=== PATIENT | female | born 1950 | race Caucasian/White ===

== ENCOUNTER 2022-10-14 06:04 | Day surgery (SDC) | payer MEDICARE ==
[~2022-10-14] VITALS: Ht 157.5 cm; Wt 119.1 kg
[~2022-10-14 06:04] MED LIST: ATOR40TA PO; Budeprion Xl300 MG PO; FURO20 PO; LISI20 PO; METF500 PO; Metoprolol Tar100 MG PO
--- NOTE | 2022-10-14 06:24 | NUR ---
10/14/22 0624 Laurence Shaikh AT 0621 PLEDGET AT 0623
[2022-10-14 08:21] VITALS: BP 157/98
--- NOTE | 2022-10-14 08:22 | NUR ---
10/14/22 0822 Faye Doss PT IS TYPICALLY HYPERTENSIVE. CAME IN FOR PROCEDURE THIS MORNING AT 159/77 AND 171/67. VS IN SDU ALIGN WITH PTS BASELINE.
== END 2022-10-14 08:17 | disposition home or self-care (01) ==
LOC: ORSCSDS 06:04
PROVIDERS: Student in an Organized Health Care Education/Training Program
PROC: 08RK3JZ Replacement of Left Lens with Synthetic Substitute, Percutaneous Approach (ICD-10-PCS; principal; 2022-10-14 07:30)
DX: E11.36 Type 2 diabetes mellitus with diabetic cataract (principal); H25.12 Age-related nuclear cataract, left eye; Z96.1 Presence of intraocular lens; E11.319 Type 2 diabetes mellitus with unspecified diabetic retinopathy without macular edema; I10 Essential (primary) hypertension; I48.91 Unspecified atrial fibrillation; J45.909 Unspecified asthma, uncomplicated; E66.9 Obesity, unspecified; Z68.42 Body mass index [BMI] 45.0-49.9, adult; Z79.82 Long term (current) use of aspirin; Z79.84 Long term (current) use of oral hypoglycemic drugs; Z79.899 Other long term (current) drug therapy
CPT/HCPCS: 82947; J2001; J2250; J3010; J7040; V2632

== ENCOUNTER → 2023-03-14 | Outpatient (CLI) | payer MEDICARE ==
[2023-03-14 15:04] LABS: BASOPHILS ABSOLUTE AUTO 0.04 K/mm3 (0.00-0.23); BASOPHILS PERCENT AUTO 1 % (0-2); EOSINOPHILS ABSOLUTE AUTO 0.06 K/mm3 (0.00-0.68); EOSINOPHILS PERCENT AUTO 1 % (0-6); Hematocrit 38.1 % (33.0-51.0); Hemoglobin 11.8 g/dL (11.5-16.0); IMMATURE GRAN ABSOLUTE AUTO 0.01 K/mm3 (0.00-0.10); IMMATURE GRAN PERCENT AUTO 0 % (0-1); LYMPHOCYTES ABSOLUTE AUTO 0.98 K/mm3 (0.84-5.20); LYMPHOCYTES PERCENT AUTO 13 % (21-46); MONOCYTES ABSOLUTE AUTO 0.63 K/mm3 (0.16-1.47); MONOCYTES PERCENT AUTO 8 % (4-13); Mean Corpuscular HGB 29.4 pg (26.0-34.0); Mean Corpuscular Volume 95 fL (80-100); Mean Platelet Volume 10.3 fL (9.1-12.4); NEUTROPHILS ABSOLUTE AUTO 5.98 K/mm3 (1.96-9.15); NEUTROPHILS PERCENT AUTO 78 % (41-73); Platelet Count 266 K/mm3 (150-400); RDW Coefficient Variation 14.2 % (11.7-14.2); RDW Standard Deviation 49.4 fL (35.1-46.3); Red Blood Cell Count 4.02 M/mm3 (3.80-5.20)
[2023-03-14 15:20] LABS: Albumin, Blood 3.1 g/dL (3.4-5.0); Albumin/Globulin Ratio 0.9 (0.8-1.8); Bilirubin, Total 0.4 mg/dL (0.1-1.0); Bun/Creatinine Ratio 15.3 (12.0-20.0); Calcium, Blood 8.8 mg/dL (8.5-10.1); Creatinine, Blood 1.37 mg/dL (0.40-1.00); Globulin, Blood 3.5 g/dL (2.2-4.0); Potassium, Blood 3.3 mmol/L (3.5-5.5); Total Protein, Blood 6.6 g/dL (6.4-8.2)
== END ==
LOC: LAB SHORT 15:00 → LAB 15:00
PROVIDERS: Chiropractor
DX: U07.1 COVID-19 (principal)
CPT/HCPCS: 80053; 83880; 84484; 85025

== ENCOUNTER → 2023-03-30 | Outpatient (CLI) | payer MEDICARE ==
[2023-03-30 14:05] LABS: Microalb/Creat Ratio UR, Rand 4.264 mg/g (0.000-30.000); Microalbumin, Random Urine 14.2 mg/L (0.000-20.000)
== END ==
LOC: LAB SHORT 07:30 → LAB 07:30
PROVIDERS: Family Medicine
DX: E11.9 Type 2 diabetes mellitus without complications (principal)
CPT/HCPCS: 82043; 82570

== ENCOUNTER → 2023-07-02 | Outpatient (CLI) | payer MEDICARE ==
[2023-07-02 14:29] LABS: BASOPHILS ABSOLUTE AUTO 0.07 K/mm3 (0.00-0.23); BASOPHILS PERCENT AUTO 1 % (0-2); EOSINOPHILS ABSOLUTE AUTO 0.31 K/mm3 (0.00-0.68); EOSINOPHILS PERCENT AUTO 3 % (0-6); Hematocrit 41.6 % (33.0-51.0); Hemoglobin 13.2 g/dL (11.5-16.0); IMMATURE GRAN ABSOLUTE AUTO 0.06 K/mm3 (0.00-0.10); IMMATURE GRAN PERCENT AUTO 1 % (0-1); LYMPHOCYTES ABSOLUTE AUTO 2.22 K/mm3 (0.84-5.20); LYMPHOCYTES PERCENT AUTO 20 % (21-46); MONOCYTES ABSOLUTE AUTO 0.85 K/mm3 (0.16-1.47); MONOCYTES PERCENT AUTO 8 % (4-13); Mean Corpuscular HGB 28.3 pg (26.0-34.0); Mean Corpuscular HGB Conc 31.7 g/dL (31.5-36.5); Mean Corpuscular Volume 89 fL (80-100); Mean Platelet Volume 10.3 fL (9.1-12.4); NEUTROPHILS ABSOLUTE AUTO 7.78 K/mm3 (1.96-9.15); NEUTROPHILS PERCENT AUTO 69 % (41-73); Platelet Count 346 K/mm3 (150-400); RDW Coefficient Variation 15.2 % (11.7-14.2); RDW Standard Deviation 49.2 fL (35.1-46.3); Red Blood Cell Count 4.67 M/mm3 (3.80-5.20); White Blood Cell Count 11.29 K/mm3 (4.00-11.30)
[2023-07-02 14:40] LABS: Albumin, Blood 3.3 g/dL (3.4-5.0); Albumin/Globulin Ratio 0.8 (0.8-1.8); Bilirubin, Total 0.4 mg/dL (0.1-1.0); Bun/Creatinine Ratio 25.8 (12.0-20.0); Calcium, Blood 8.7 mg/dL (8.5-10.1); Creatinine, Blood 1.24 mg/dL (0.40-1.00); Globulin, Blood 3.9 g/dL (2.2-4.0); Magnesium, Blood 2.1 mg/dL (1.6-2.4); Potassium, Blood 4.5 mmol/L (3.5-5.5); Total Protein, Blood 7.2 g/dL (6.4-8.2)
== END | disposition home or self-care (01) ==
LOC: LAB 14:15 → LAB SHORT 14:15
PROVIDERS: Chiropractor
DX: R53.1 Weakness (principal); R82.998 Other abnormal findings in urine
CPT/HCPCS: 80053; 83735; 83880; 85025; 87086

== ENCOUNTER 2024-03-16 17:53 | Observation (INO) | payer OTHER, MEDICARE ==
[~2024-03-16] VITALS: Ht 157.5 cm; Wt 120.2 kg
[2024-03-16] MEDS ORDERED: Ondansetron HCl 2 MG / ML 2ML Vial IV ONE (22:45)
[2024-03-16] MEDS ORDERED: FentaNYL Citrate 50 MCG/ML 2 ML Injection IV SCH (22:45)
[2024-03-16 23:45] LABS: BASOPHILS ABSOLUTE AUTO 0.07 K/mm3 (0.00-0.23); BASOPHILS PERCENT AUTO 1 % (0-2); EOSINOPHILS ABSOLUTE AUTO 0.08 K/mm3 (0.00-0.68); EOSINOPHILS PERCENT AUTO 1 % (0-6); Hematocrit 41.5 % (33.0-51.0); Hemoglobin 13.6 g/dL (11.5-16.0); IMMATURE GRAN ABSOLUTE AUTO 0.07 K/mm3 (0.00-0.10); IMMATURE GRAN PERCENT AUTO 1 % (0-1); LYMPHOCYTES ABSOLUTE AUTO 2.24 K/mm3 (0.84-5.20); LYMPHOCYTES PERCENT AUTO 16 % (21-46); MONOCYTES PERCENT AUTO 7 % (4-13); Mean Corpuscular HGB 30.4 pg (26.0-34.0); Mean Corpuscular HGB Conc 32.8 g/dL (31.5-36.5); Mean Corpuscular Volume 93 fL (80-100); Mean Platelet Volume 10.6 fL (9.1-12.4); NEUTROPHILS ABSOLUTE AUTO 10.64 K/mm3 (1.96-9.15); NEUTROPHILS PERCENT AUTO 75 % (41-73); Platelet Count 328 K/mm3 (150-400); RDW Coefficient Variation 13.9 % (11.7-14.2); RDW Standard Deviation 46.9 fL (35.1-46.3); Red Blood Cell Count 4.48 M/mm3 (3.80-5.20)
[2024-03-17] VITALS (14 sets, daily range): BP systolic 103–148; BP diastolic 41–87
[2024-03-17 00:04] LABS: Albumin, Blood 3.5 g/dL (3.4-5.0); Bilirubin, Total 0.4 mg/dL (0.1-1.0); Bun/Creatinine Ratio 29.2 (12.0-20.0); Calcium, Blood 9.4 mg/dL (8.5-10.1); Creatinine, Blood 1.13 mg/dL (0.40-1.00); Globulin, Blood 3.6 g/dL (2.2-4.0); Potassium, Blood 3.4 mmol/L (3.5-5.5); Total Protein, Blood 7.1 g/dL (6.4-8.2)
[2024-03-17] MEDS ORDERED: FentaNYL Citrate 50 MCG/ML 2 ML Injection IV ONE (01:45)
[2024-03-17] MEDS ORDERED: HYDROcodone 5-APAP 325 TAB PO PRN (03:45)
[2024-03-17] MEDS ORDERED: NS 1,000 ML IV SCH (06:00)
[2024-03-17] MEDS ORDERED: FLU VACC TS2024-25(6MOS UP)/PF 45 MCG/0.5 ML SYRINGE IM PRN (06:00)
[2024-03-17] MEDS ORDERED: FentaNYL Citrate 50 MCG/ML 2 ML Injection IV PRN (06:00)
[2024-03-17] MEDS ORDERED: Ondansetron HCl 2 MG / ML 2ML Vial IV PRN (06:00)
[2024-03-17] MEDS ORDERED: Potassium Chloride 40 MEQ in NS 250 ML IV ONE (06:40)
[2024-03-17] MEDS ORDERED: Lactated Ringer's 1,000 ML IV SCH (12:10)
[2024-03-17] MEDS ORDERED: propofoL 20 ML IV ONE (13:17)
[2024-03-17] MEDS ORDERED: FentaNYL Citrate 50 MCG/ML 2 ML Injection ONE ×2 (13:17→14:04)
--- NOTE | 2024-03-17 13:32 | NUR ---
History, Chart, Medications and Allergies reviewed before start of procedure. Lungs clear T/O to Auscultation. Patient confirms NPO status and agrees with scheduled surgery. Pre-Op teaching done. Pt verbalizes understanding.
[2024-03-17] MEDS ORDERED: Ondansetron HCl 2 MG / ML 2ML Vial ONE (14:03)
[2024-03-17] MEDS ORDERED: Ketorolac Tromethamine 30mg Vial ONE (14:03)
[2024-03-17] MEDS ORDERED: Dexamethasone Sod Phos 10 MG/ML 1ML VIAL ONE (14:03)
--- NOTE | 2024-03-17 16:05 | NUR ---
POST OP NOTE PT TO ROOM 219 FROM PACU. ALERT AND RESPONSIVE. VSS. DRESSING/SPLINT TO L LEG C/D/I. PAS IN PLACE. FRIENDS AT BEDSIDE. PT REPORTS NO PAIN OR NAUSEA. TOLERATING PO FLUIDS. L LEG ELEVATED, CAP REFILL >2 SECS IN L TOES. CALL LIGHT IN REACH.
[2024-03-18] MEDS ORDERED: NS 1,000 ML IV SCH (02:05)
--- NOTE | 2024-03-18 02:12 | NUR ---
PROVIDER UPDATE HOSPITALIST NOTIFIED OF PT NOT VOIDING POST PROCEDURE AND OF MOST RECENT BLADDER SCAN BEING UNDER 250ML. ORDER TO START NS AT 75ML/HR WITH 1L TOTAL BEING INFUSED. WILL IMPLEMENT ORDERS PRESCRIBED.
[2024-03-18 04:12] VITALS: BP 123/52
--- NOTE | 2024-03-18 05:03 | NUR ---
SHIFT SUMMARY PT AWAITING POST-OP VOID, BLADDER SCAN LESS THAN 250ML. ENCOURAGED PO INTAKE. IVF INFUSING AT 75/HR PER ORER. IS A/OX4 WITH VSS. SPLINT AND KALEY WRAP TO LEFT LEG CDI. LLE ELEVATED. PAIN MANAGED PER EMAR AND REPOSITIONING. APPEARS TO HAVE SLEPT T/O MOST OF THE NIGHT. PT CURRENTLY RESTING IN BED WITH CALL LIGHT IN REACH AND EYES CLOSED. PT ABLE TO MAKE NEEDS KNOWN. WILL GIVE REPORT TO ONCOMING RN.
[2024-03-18 06:27] LABS: BASOPHILS ABSOLUTE AUTO 0.02 K/mm3 (0.00-0.23); BASOPHILS PERCENT AUTO 0 % (0-2); EOSINOPHILS PERCENT AUTO 0 % (0-6); Hematocrit 35.6 % (33.0-51.0); Hemoglobin 11.4 g/dL (11.5-16.0); IMMATURE GRAN ABSOLUTE AUTO 0.07 K/mm3 (0.00-0.10); IMMATURE GRAN PERCENT AUTO 1 % (0-1); LYMPHOCYTES ABSOLUTE AUTO 0.92 K/mm3 (0.84-5.20); LYMPHOCYTES PERCENT AUTO 9 % (21-46); MONOCYTES ABSOLUTE AUTO 1.09 K/mm3 (0.16-1.47); MONOCYTES PERCENT AUTO 10 % (4-13); Mean Corpuscular HGB 30.2 pg (26.0-34.0); Mean Corpuscular Volume 94 fL (80-100); Mean Platelet Volume 11.1 fL (9.1-12.4); NEUTROPHILS ABSOLUTE AUTO 8.46 K/mm3 (1.96-9.15); NEUTROPHILS PERCENT AUTO 80 % (41-73); Platelet Count 225 K/mm3 (150-400); RDW Coefficient Variation 14.1 % (11.7-14.2); RDW Standard Deviation 48.5 fL (35.1-46.3); Red Blood Cell Count 3.78 M/mm3 (3.80-5.20); White Blood Cell Count 10.56 K/mm3 (4.00-11.30)
[2024-03-18 06:55] LABS: Albumin, Blood 2.6 g/dL (3.4-5.0); Albumin/Globulin Ratio 0.8 (0.8-1.8); Bilirubin, Total 0.3 mg/dL (0.1-1.0); Bun/Creatinine Ratio 32.6 (12.0-20.0); Calcium, Blood 8.7 mg/dL (8.5-10.1); Creatinine, Blood 0.74 mg/dL (0.40-1.00); Globulin, Blood 3.3 g/dL (2.2-4.0); Total Protein, Blood 5.9 g/dL (6.4-8.2)
[2024-03-18 07:07] VITALS: BP 141/59
--- NOTE | 2024-03-18 10:24 | NUR ---
MORNING NOTE THIS RN ASSUMED CARE AT APPROX 0715. PATIENT ALERT AND ORIENTED X4. IS [place] - COMMUNICATES NEEDS EFFECTIVELY. VSS. POD 1 L ANKLE REDUCTION - SPLINT DX IN PLACE, C/D/I. MANAGING PAIN PER EMAR. WORKED WITH PHYSICAL THERAPY - IS A 2P ASSIST FWW WITH MOBILITY. DIFFICULTY MAINTAINING NWB STATUS TO LLE. CONCERN FOR URINARY RETENTION OVERNIGHT - BLADDER SCAN PERFORMED SHOWING 700ML. PATIENT UP TO BSC TO VOID 300ML. CALL LIGHT IN REACH.
[2024-03-18 16:00] VITALS: BP 166/71
--- NOTE | 2024-03-18 17:15 | NUR ---
SHIFT SUMMARY NO ACUTE EVENTS SINCE MORNING NOTE. PATIENT UP IN CHAIR MAJORITY OF THE DAY. AMBULATING WITH 2 PERSON ASSIST WITH FWW GB TO BSC OR CHAIR - DIFFICULTY MAINTAINING NWB STATUS TO LLE. VSS. SBP 140s-160s. MAP >65. DENIES CHEST PAIN, PRESSURE. REMAINS ON ROOM AIR, SATs >90%. MANAGING PAIN PER EMAR. VOIDING. CALL LIGHT IN REACH. WILL CONTINUE TO MONITOR AND REPORT TO ONCOMING RN.
[2024-03-18 19:38] VITALS: BP 154/65
[2024-03-19 03:59] VITALS: BP 179/76
--- NOTE | 2024-03-19 05:08 | NUR ---
SHIFT SUMMARY NO ACUTE CHANGES T/O SHIFT. PT A/OX4 WITH VSS. IS ABLE TO MAKE NEEDS KNOWN. IV SL. 2-3 PERSON MAX ASSIST WITH TRANSFER. PAIN MANAGED PER EMAR, ICE AND REPOSITIONING. GENNY PO INTAKE, DENIES N/V. KALEY WRAP/DRESSING TO LLE CDI. LLE ELEVATED T/O SHIFT ORDERED. PT CURRENTLY RESTING IN BED WITH EYES CLOSED, RESP EVEN/UNLABORED, AND HAS CALL LIGHT IN REACH. PLAN TO WORK WITH THERAPY TODAY. WILL GIVE REPORT TO ONCOMING RN.
[2024-03-19 07:17] VITALS: BP 149/70
[2024-03-19 15:31] VITALS: BP 174/71
--- NOTE | 2024-03-19 15:47 | NUR ---
SHIFT SUMMARY S/P L ANKLE FX WITH CLOSED REDUCTION, A/OX4, VSS, TOLERATING PO, PAIN TOLERABLE TODAY AND SHE HAS NOT NEEDED ANY PAIN MEDICATIONS, ABLE TO ASSIST WITH REPOSITIONS BUT DID NOT GET OUT OF BED TODAY. NO ACUT EEVENTS, CALL LIGHT IN REACH.
[2024-03-19 19:40] VITALS: BP 151/55
[2024-03-20 04:29] VITALS: BP 153/55
--- NOTE | 2024-03-20 06:28 | NUR ---
SHIFT SUMMARY NO ACUTE CHANGES T/O SHIFT. A/OX4 WITH VSS. LLE ELEVATED WITH DRESSING/KALEY WRAP/SPLINT IN PLACE AND ICE THERAPY APPLIED TOLERATED. PAIN MANAGED PER EMAR. APPEARS TO HAVE SLEPT W/O NIGHT. GENNY PO INTAKE. PLAN FOR PT WORK WITH THERAPY AND BE OOB. PT CURRENTLY RESTING IN BED WITH CALL LIGHT IN REACH. WILL GIVE REPORT TO ONCOMING RN.
[2024-03-20 07:10] VITALS: BP 153/58
[2024-03-20 08:17] LABS: BASOPHILS ABSOLUTE AUTO 0.08 K/mm3 (0.00-0.23); BASOPHILS PERCENT AUTO 1 % (0-2); EOSINOPHILS ABSOLUTE AUTO 0.35 K/mm3 (0.00-0.68); EOSINOPHILS PERCENT AUTO 4 % (0-6); Hematocrit 35.1 % (33.0-51.0); Hemoglobin 11.4 g/dL (11.5-16.0); IMMATURE GRAN ABSOLUTE AUTO 0.04 K/mm3 (0.00-0.10); IMMATURE GRAN PERCENT AUTO 1 % (0-1); LYMPHOCYTES ABSOLUTE AUTO 2.14 K/mm3 (0.84-5.20); LYMPHOCYTES PERCENT AUTO 24 % (21-46); MONOCYTES PERCENT AUTO 9 % (4-13); Mean Corpuscular HGB 30.1 pg (26.0-34.0); Mean Corpuscular HGB Conc 32.5 g/dL (31.5-36.5); Mean Corpuscular Volume 93 fL (80-100); Mean Platelet Volume 10.7 fL (9.1-12.4); NEUTROPHILS ABSOLUTE AUTO 5.45 K/mm3 (1.96-9.15); NEUTROPHILS PERCENT AUTO 61 % (41-73); Platelet Count 258 K/mm3 (150-400); RDW Coefficient Variation 14.4 % (11.7-14.2); RDW Standard Deviation 49.2 fL (35.1-46.3); Red Blood Cell Count 3.79 M/mm3 (3.80-5.20); White Blood Cell Count 8.86 K/mm3 (4.00-11.30)
[2024-03-20 08:35] LABS: Bun/Creatinine Ratio 23.8 (12.0-20.0); Calcium, Blood 8.6 mg/dL (8.5-10.1); Creatinine, Blood 0.67 mg/dL (0.40-1.00); Potassium, Blood 3.7 mmol/L (3.5-5.5)
[2024-03-20] MEDS ORDERED: HYDROcodone 5-APAP 325 TAB PO PRN (10:20)
[2024-03-20] MEDS ORDERED: Enoxaparin 40 MG/0.4 ML SYR SC SCH (14:00)
[2024-03-20 14:44] VITALS: BP 153/62
--- NOTE | 2024-03-20 16:53 | NUR ---
SHIFT SUMMARY AFTER ADJUSTING PAIN MEDS, PT's PAIN MUCH BETTER CONTROLLED. ALERT, PLEASANT. VOIDING & BMs VIA BEDPAN DUE TO INACTIVITY/DECONDITIONING. SPLINT WNL. WIGGLES TOES. AGREEABLE TO SNF WHEN APPRIOPRIATE FOR DC.
[2024-03-20 19:32] VITALS: BP 156/71
[2024-03-21 06:01] VITALS: BP 139/72
--- NOTE | 2024-03-21 06:17 | NUR ---
SHIFT SUMMARY NO ACUTE CHANGES THIS SHIFT. PAIN MANAGED WITH NORCO, MEDICATED 2X DURING NIGHT. CONTINUES TO USE BED PAIN FOR VOIDING, DECLINING BSC R/T WEAKNESS/DECONDITIONING. IS A/OX4. VSS. LLE ELEVATED T/O SHIFT CHANGE WITH ICE APPLIED PRN. GENNY PO INTAKE. ABLE TO MAKE NEEDS KNOWN. PLAN TO WORK WITH THERAPY TODAY. WILL GIVE REPORT TO ONCOMING RN.
[2024-03-21] MEDS ORDERED: FOSAMAX70 MG PO (08:52)
[2024-03-21] MEDS ORDERED: ATORVASTATIN CA80 M1 PO (08:53)
[2024-03-21] MEDS ORDERED: bupropion HCl XL 300 PO (08:54)
[2024-03-21] MEDS ORDERED: lisinopril 40 mg tab PO (08:56)
[2024-03-21] MEDS ORDERED: Glucophage 500 mg PO (08:57)
[2024-03-21] MEDS ORDERED: METO100 PO (08:58)
[2024-03-21] MEDS ORDERED: TRAM50 PO (08:59)
[2024-03-21] MEDS ORDERED: buPROPion HCL 150 MG TAB.SR.12H PO SCH (09:00)
[2024-03-21] MEDS ORDERED: Atorvastatin 40 MG Tab PO SCH (09:00)
[2024-03-21] MEDS ORDERED: Metoprolol Tartrate 50 MG Tab PO SCH (09:00)
[2024-03-21] MEDS ORDERED: Lisinopril 20 MG Tab PO SCH (09:00)
[2024-03-21] MEDS ORDERED: MetFORMIN HCl 500 mg PO SCH (09:00)
[2024-03-21 09:28] LABS: Source, Urine Clean Catch
[2024-03-21 09:32] LABS: Appearance, Urine Cloudy (Clear); Bilirubin, Urine Neg (Neg); Blood, Urine Neg (Neg); Color, Urine Yellow (P-Yellow); Glucose Qualitative, Urine Neg (Neg); Ketones, Urine Neg (Neg); Leukocyte Esterase, Urine Neg (Neg); Nitrite, Urine Neg (Neg); Protein, Urine Neg (Neg); Specific Gravity, Urine 1.015 (1.003-1.022); Urobilinogen, Urine NORM (Normal)
[2024-03-21 09:45] LABS: Squamous Epithelial Cells Many /hpf (Few)
[2024-03-21 09:47] LABS: Amorphous Not Seen (0-Heavy); Bacteria Not Seen /hpf; Red Blood Cells, Urine 0-2 /hpf (0-2); White Blood Cells, Urine 0-2 /hpf (0-5)
[2024-03-21 15:45] VITALS: BP 138/64
--- NOTE | 2024-03-21 16:28 | NUR ---
REPORT TO SAGAR MALDONADO DC VIA ANUP. BELONGINGS SENT.
[2024-03-21] MEDS ORDERED: TraMADol HCl 50 MG Tab PO PRN (21:00)
== END 2024-03-21 16:23 | disposition home or self-care (01) ==
LOC: ER 17:53 → SURS 17:54 → ERHOLD 17:54 → ER 17:54 → SURS 17:55 → ERHOLD 03-17 05:57 → SURS 03-17 05:57 → ERHOLD 03-17 05:58 → SURS 03-17 15:01 → ERHOLD 03-17 15:01 → SURS 03-21 16:23
PROVIDERS: Emergency Medicine; Orthopaedic Surgery; Student in an Organized Health Care Education/Training Program; ADMIT Internal Medicine
PROC: 0QSKXZZ Reposition Left Fibula, External Approach (ICD-10-PCS; principal; 2024-03-17 12:00)
PROC: 0QSHXZZ Reposition Left Tibia, External Approach (ICD-10-PCS; principal; 2024-03-17 12:00)
DX: S82.852A Displaced trimalleolar fracture of left lower leg, initial encounter for closed fracture (principal); V48.4XXA Person boarding or alighting a car injured in noncollision transport accident, initial encounter; I12.9 Hypertensive chronic kidney disease with stage 1 through stage 4 chronic kidney disease, or unspecified chronic kidney disease; E11.22 Type 2 diabetes mellitus with diabetic chronic kidney disease; N18.30 Chronic kidney disease, stage 3 unspecified; E78.5 Hyperlipidemia, unspecified; I48.91 Unspecified atrial fibrillation; F32.9 Major depressive disorder, single episode, unspecified; M81.0 Age-related osteoporosis without current pathological fracture; Z79.899 Other long term (current) drug therapy
CPT/HCPCS: 27818; 36415; 73600; 73610; 80048; 80053; 81001; 82947; 83880; 84443; 85025; 96372; 96374; 96375; 96376; 97110; 97162; 97530; 99285-25; A9270; G0378; J1100; J1650; J1885; J2405; J2704; J3010; J3480; J7030; J7050; J7120

== ENCOUNTER 2024-04-04 21:37 | Emergency (ER) | payer MEDICARE ==
[~2024-04-04] VITALS: Ht 170.2 cm; Wt 99.8 kg
[~2024-04-04 21:37] MED LIST changes: +ATORVASTATIN CA80 M1 PO; +FOSAMAX70 MG PO; +Glucophage 500 mg PO; +METO100 PO; +TRAM50 PO; +bupropion HCl XL 300 PO; +lisinopril 40 mg tab PO
[2024-04-04] MEDS ORDERED: Dexamethasone Sod Phos 10 MG/ML 1ML VIAL PO ONE (22:35)
[2024-04-04] MEDS ORDERED: NS 1,000 ML IV SCH (22:35)
[2024-04-04 23:20] LABS: BASOPHILS ABSOLUTE AUTO 0.03 K/mm3 (0.00-0.23); BASOPHILS PERCENT AUTO 0 % (0-2); EOSINOPHILS ABSOLUTE AUTO 0.07 K/mm3 (0.00-0.68); EOSINOPHILS PERCENT AUTO 1 % (0-6); Hemoglobin 13.8 g/dL (11.5-16.0); IMMATURE GRAN ABSOLUTE AUTO 0.07 K/mm3 (0.00-0.10); IMMATURE GRAN PERCENT AUTO 1 % (0-1); LYMPHOCYTES ABSOLUTE AUTO 1.31 K/mm3 (0.84-5.20); LYMPHOCYTES PERCENT AUTO 11 % (21-46); MONOCYTES ABSOLUTE AUTO 1.24 K/mm3 (0.16-1.47); MONOCYTES PERCENT AUTO 11 % (4-13); Mean Corpuscular HGB 29.1 pg (26.0-34.0); Mean Corpuscular HGB Conc 32.9 g/dL (31.5-36.5); Mean Corpuscular Volume 88 fL (80-100); Mean Platelet Volume 10.2 fL (9.1-12.4); NEUTROPHILS ABSOLUTE AUTO 8.77 K/mm3 (1.96-9.15); NEUTROPHILS PERCENT AUTO 76 % (41-73); Platelet Count 405 K/mm3 (150-400); RDW Coefficient Variation 13.6 % (11.7-14.2); RDW Standard Deviation 44.1 fL (35.1-46.3); Red Blood Cell Count 4.75 M/mm3 (3.80-5.20); White Blood Cell Count 11.49 K/mm3 (4.00-11.30)
[2024-04-04] MEDS ORDERED: Ondansetron HCl 2 MG / ML 2ML Vial IV ONE (23:25)
[2024-04-04] MEDS ORDERED: Ondansetron HCl 2 MG / ML 2ML Vial ONE (23:25)
[2024-04-04 23:46] LABS: Albumin, Blood 2.7 g/dL (3.4-5.0); Albumin/Globulin Ratio 0.7 (0.8-1.8); Bilirubin, Total 0.7 mg/dL (0.1-1.0); Bun/Creatinine Ratio 51.7 (12.0-20.0); Calcium, Blood 8.6 mg/dL (8.5-10.1); Creatinine, Blood 0.99 mg/dL (0.40-1.00); Globulin, Blood 3.8 g/dL (2.2-4.0); Potassium, Blood 3.8 mmol/L (3.5-5.5); Total Protein, Blood 6.5 g/dL (6.4-8.2)
[2024-04-05 01:52] VITALS: BP 125/73
== END 2024-04-05 02:53 | disposition home or self-care (01) ==
LOC: ER 21:37
PROVIDERS: Emergency Medicine
DX: E86.0 Dehydration (principal); H91.8X9 Other specified hearing loss, unspecified ear; Z79.83 Long term (current) use of bisphosphonates; Z79.899 Other long term (current) drug therapy; Z79.84 Long term (current) use of oral hypoglycemic drugs; Z59.89 Other problems related to housing and economic circumstances
CPT/HCPCS: 80053; 83605; 85025; 96361; 96374; 99284-25; J1100; J2405; J7030

== ENCOUNTER 2024-04-20 17:51 | Inpatient (IN) | payer MEDICARE ==
[~2024-04-20] VITALS: Ht 170.2 cm; Wt 104.5 kg
[~2024-04-20 17:51] MED LIST changes: +METO50 PO; -Metoprolol Tar100 MG PO; +ZESTRIL40 M1 PO; -bupropion HCl XL 300 PO; -lisinopril 40 mg tab PO
[2024-04-20 19:08] LABS: BASOPHILS ABSOLUTE AUTO 0.05 K/mm3 (0.00-0.23); BASOPHILS PERCENT AUTO 0 % (0-2); EOSINOPHILS ABSOLUTE AUTO 0.05 K/mm3 (0.00-0.68); EOSINOPHILS PERCENT AUTO 0 % (0-6); Hematocrit 46.4 % (33.0-51.0); Hemoglobin 14.6 g/dL (11.5-16.0); IMMATURE GRAN ABSOLUTE AUTO 0.18 K/mm3 (0.00-0.10); IMMATURE GRAN PERCENT AUTO 1 % (0-1); LYMPHOCYTES ABSOLUTE AUTO 1.74 K/mm3 (0.84-5.20); LYMPHOCYTES PERCENT AUTO 11 % (21-46); MONOCYTES ABSOLUTE AUTO 0.74 K/mm3 (0.16-1.47); MONOCYTES PERCENT AUTO 5 % (4-13); Mean Corpuscular HGB 29.4 pg (26.0-34.0); Mean Corpuscular HGB Conc 31.5 g/dL (31.5-36.5); Mean Corpuscular Volume 93 fL (80-100); Mean Platelet Volume 10.8 fL (9.1-12.4); NEUTROPHILS PERCENT AUTO 83 % (41-73); NRBC ABSOLUTE 0.04 K/mm3 (0.00-0.02); NRBC Auto 0.2 /100 WBC (0.0-0.2); Platelet Count 440 K/mm3 (150-400); RDW Coefficient Variation 15.2 % (11.7-14.2); RDW Standard Deviation 51.5 fL (35.1-46.3); Red Blood Cell Count 4.97 M/mm3 (3.80-5.20); White Blood Cell Count 16.16 K/mm3 (4.00-11.30)
[2024-04-20 19:25] LABS: Albumin, Blood 2.5 g/dL (3.4-5.0); Albumin/Globulin Ratio 0.5 (0.8-1.8); Bilirubin, Total 0.7 mg/dL (0.1-1.0); Bun/Creatinine Ratio 54.1 (12.0-20.0); Calcium, Blood 9.4 mg/dL (8.5-10.1); Creatinine, Blood 2.05 mg/dL (0.40-1.00); Globulin, Blood 4.8 g/dL (2.2-4.0); Potassium, Blood 4.9 mmol/L (3.5-5.5); Total Protein, Blood 7.3 g/dL (6.4-8.2)
[2024-04-20] MEDS ORDERED: NS 1,000 ML IV SCH (19:30)
[2024-04-20] MEDS ORDERED: Lactated Ringer's 1,000 ML IV SCH ×2 (20:45→22:40)
[2024-04-20 21:27] LABS: Thyroid Stimulating Hormone 3.94 uIU/mL (0.360-4.800)
[2024-04-20] MEDS ORDERED: Ondansetron HCl 2 MG / ML 2ML Vial IV PRN (22:40)
[2024-04-20] MEDS ORDERED: FLU VACC TS2024-25(6MOS UP)/PF 45 MCG/0.5 ML SYRINGE IM ONE (22:40)
[2024-04-20 22:41] LABS: Source, Urine Straight Cath
[2024-04-20] MEDS ORDERED: CefTRIAXone Sodium 1,000 MG in NS 100 ML IV ONE (22:55)
[2024-04-20 23:39] LABS: Appearance, Urine Hazy (Clear); Bilirubin, Urine Neg (Neg); Blood, Urine 5+ (Neg); Color, Urine Yellow (P-Yellow); Glucose Qualitative, Urine Neg (Neg); Ketones, Urine Neg (Neg); Leukocyte Esterase, Urine 3+ (Neg); Nitrite, Urine Neg (Neg); Protein, Urine 2+ (Neg); Urobilinogen, Urine NORM (Normal)
[2024-04-20 23:50] LABS: Red Blood Cells, Urine 25-50 /hpf (0-2); White Blood Cells, Urine 50-100 /hpf (0-5)
[2024-04-20 23:51] LABS: Bacteria Many /hpf; Calcium Oxalate Crystals Few /hpf; Squamous Epithelial Cells Few /hpf (Few)
[2024-04-20] MEDS ORDERED: Lactated Ringer's 1,000 ML IV ONE (23:51)
[2024-04-21 00:45] VITALS: BP 140/112
[2024-04-21 04:12] VITALS: BP 136/59
[2024-04-21] MEDS ORDERED: CEFD300 PO (04:36)
[2024-04-21] MEDS ORDERED: DEXTROMETHORPHAN PO (04:40)
[2024-04-21] MEDS ORDERED: GUAIFENESIN PO (04:40)
[2024-04-21] MEDS ORDERED: BISA10S PR (04:40)
[2024-04-21] MEDS ORDERED: FURO20 PO (04:41)
[2024-04-21] MEDS ORDERED: ONDA4 PO (04:41)
[2024-04-21] MEDS ORDERED: LOSA50 PO (04:41)
[2024-04-21] MEDS ORDERED: OXYC5 PO (04:42)
[2024-04-21] MEDS ORDERED: Haloperidol Lactate Inj. 5 MG/ML Injection IM ONE (05:40)
[2024-04-21] MEDS ORDERED: Haloperidol Lactate Inj. 5 MG/ML Injection IM PRN (06:05)
--- NOTE | 2024-04-21 06:12 | NUR ---
SHIFT SUMMARY NOC PT A/O TO SELF. VERY [place] AND CONFUSED. AMPLIFIER IS NOT WORKING PROPERLY THAT PT CAME UP WITH PT FROM ED. PT ADMIT FOR MÓNICA/UTI AND FTT. PT HAS LOST 40 LBS OVER LAST MONTH DUE TO POOR PO INTAKE. PER ED REPORT PT HAS SPLINT IN PLACE LLE FORRECENT L ANKLE FX. PT HAS LR INFUSING @ 100 ML/HR. PT ON TELE SINUS RHYTHM IN 70'S. PT BP SOFT IN ED, BUT IMPROVING SINCE ADMIT TO FLOOR. PT CONTINOUSLY PULLED OFF TELE AND PULLED IV ACCESS, ORDER FOR BILATERAL MITTS OBTAINED AND NEW IV ACCESS ESTABLISHED. PT CURRENTLY RESTING WITH BED ALARM ON, BED IN LOWEST POSITION, AND CALL LIGHT WITHIN REACH.
--- NOTE | 2024-04-21 06:38 | NUR ---
PT PULLED OFF TELE MULTIPLE TIMES AND PULLED IV ACCESS. HOSPITALIST NOTIFIED AND ORDER FOR BILATERAL MITTS OBTAINED. NEW IV ACCESS STARTED.
[2024-04-21 07:30] VITALS: BP 122/64
[2024-04-21] MEDS ORDERED: Insulin Human Lispro 100 Units/ML 3ML Syringe SC SCH (07:30)
[2024-04-21] MEDS ORDERED: LORazepam 2 MG/ML 1ML Injection IV PRN (07:40)
[2024-04-21] MEDS ORDERED: D5W-1/4NS 1,000 ML IV SCH (08:15)
[2024-04-21 08:50] LABS: BASOPHILS ABSOLUTE AUTO 0.03 K/mm3 (0.00-0.23); BASOPHILS PERCENT AUTO 0 % (0-2); EOSINOPHILS ABSOLUTE AUTO 0.18 K/mm3 (0.00-0.68); EOSINOPHILS PERCENT AUTO 1 % (0-6); Hematocrit 41.2 % (33.0-51.0); Hemoglobin 13.6 g/dL (11.5-16.0); IMMATURE GRAN ABSOLUTE AUTO 0.13 K/mm3 (0.00-0.10); IMMATURE GRAN PERCENT AUTO 1 % (0-1); LYMPHOCYTES ABSOLUTE AUTO 2.08 K/mm3 (0.84-5.20); LYMPHOCYTES PERCENT AUTO 13 % (21-46); MONOCYTES ABSOLUTE AUTO 0.92 K/mm3 (0.16-1.47); MONOCYTES PERCENT AUTO 6 % (4-13); Mean Corpuscular HGB 29.8 pg (26.0-34.0); Mean Corpuscular Volume 90 fL (80-100); Mean Platelet Volume 11.7 fL (9.1-12.4); NEUTROPHILS PERCENT AUTO 80 % (41-73); NRBC ABSOLUTE 0.02 K/mm3 (0.00-0.02); NRBC Auto 0.1 /100 WBC (0.0-0.2); Platelet Count 267 K/mm3 (150-400); RDW Coefficient Variation 15.2 % (11.7-14.2); RDW Standard Deviation 48.4 fL (35.1-46.3); Red Blood Cell Count 4.57 M/mm3 (3.80-5.20); White Blood Cell Count 16.44 K/mm3 (4.00-11.30)
[2024-04-21] MEDS ORDERED: Heparin Sodium 5000 Units/ML 1ML MDV SC SCH (09:00)
[2024-04-21] MEDS ORDERED: Lactobacil 2-S.Thermo-Bifido 1 1 Cap PO SCH (09:00)
[2024-04-21] MEDS ORDERED: Atorvastatin 40 MG Tab PO SCH (09:00)
[2024-04-21 09:34] LABS: Albumin, Blood 2.2 g/dL (3.4-5.0); Albumin/Globulin Ratio 0.5 (0.8-1.8); Bilirubin, Total 0.6 mg/dL (0.1-1.0); Bun/Creatinine Ratio 64.7 (12.0-20.0); Creatinine, Blood 1.53 mg/dL (0.40-1.00); Globulin, Blood 4.2 g/dL (2.2-4.0); Magnesium, Blood 2.2 mg/dL (1.6-2.4); Potassium, Blood 4.6 mmol/L (3.5-5.5); Total Protein, Blood 6.4 g/dL (6.4-8.2)
[2024-04-21 12:10] VITALS: BP 149/63
[2024-04-21] MEDS ORDERED: Bisacodyl 10 MG Supp PR PRN (13:10)
[2024-04-21] MEDS ORDERED: Magnesium Hydroxide Conc 10 ML UDC PO PRN (13:10)
[2024-04-21] MEDS ORDERED: Acetaminophen 500 MG Tab PO PRN (13:45)
[2024-04-21] MEDS ORDERED: OxyCODONE HCL 5 MG TAB PO PRN (13:50)
[2024-04-21] MEDS ORDERED: Losartan Potassium 50 MG Tab PO SCH (14:00)
[2024-04-21] MEDS ORDERED: HydrALAZINE HCl 20 MG / ML 1ML Vial IV PRN (14:00)
[2024-04-21 15:33] VITALS: BP 138/70
--- NOTE | 2024-04-21 16:23 | NUR ---
PT WAS RIPPING THROUGH HER MITS THAT THE NIGHT NURSE PUT ON AND PT STARTED CAUSING HARM BY PULLING OUT PIV,S AND TELE. THIS NURSE CALLED AND INFROMED MD AND AGREED TO DO L UPPER LIMB SOFT RESTRAINT WITH Q2 CHECKS. PT HAS BEEN NON VERBAL ALL DAY AND IS [place]. SISTERS AT BEDSIDE THROUGH OUT THE DAY
[2024-04-21 19:35] VITALS: BP 134/62
[2024-04-21] MEDS ORDERED: Sennosides 8.6 MG Tab PO SCH (21:00)
[2024-04-21] MEDS ORDERED: buPROPion HCL 150 MG TAB.SR.12H PO SCH (21:00)
[2024-04-21] MEDS ORDERED: Docusate Sodium 100 MG Cap PO SCH (21:00)
[2024-04-21] MEDS ORDERED: CefTRIAXone Sodium 1,000 MG in NS 100 ML IV SCH (21:00)
[2024-04-21] MEDS ORDERED: Metoprolol Tartrate 50 MG Tab PO SCH (21:00)
[2024-04-22 03:22] VITALS: BP 144/92
--- NOTE | 2024-04-22 04:39 | NUR ---
SHIFT SUMMARY; PAATIENT SLEPT IN LONG INTERVALS, DID REMAIN IN 1 SOFT WRIST RESTRAINT ALL NIGHT. DID TAKE MEDS CRUSHED IN APPLESAUCE. TELE SR 74. IV FLUIDS, D5.25NS/125 HR.
[2024-04-22 06:17] LABS: BASOPHILS ABSOLUTE AUTO 0.02 K/mm3 (0.00-0.23); BASOPHILS PERCENT AUTO 0 % (0-2); EOSINOPHILS ABSOLUTE AUTO 0.26 K/mm3 (0.00-0.68); EOSINOPHILS PERCENT AUTO 3 % (0-6); Hematocrit 36.5 % (33.0-51.0); Hemoglobin 11.7 g/dL (11.5-16.0); IMMATURE GRAN ABSOLUTE AUTO 0.11 K/mm3 (0.00-0.10); IMMATURE GRAN PERCENT AUTO 1 % (0-1); LYMPHOCYTES ABSOLUTE AUTO 1.67 K/mm3 (0.84-5.20); LYMPHOCYTES PERCENT AUTO 16 % (21-46); MONOCYTES ABSOLUTE AUTO 0.74 K/mm3 (0.16-1.47); MONOCYTES PERCENT AUTO 7 % (4-13); Mean Corpuscular HGB 29.3 pg (26.0-34.0); Mean Corpuscular HGB Conc 32.1 g/dL (31.5-36.5); Mean Corpuscular Volume 92 fL (80-100); Mean Platelet Volume 11.2 fL (9.1-12.4); NEUTROPHILS ABSOLUTE AUTO 7.61 K/mm3 (1.96-9.15); NEUTROPHILS PERCENT AUTO 73 % (41-73); Platelet Count 280 K/mm3 (150-400); RDW Coefficient Variation 14.9 % (11.7-14.2); RDW Standard Deviation 49.1 fL (35.1-46.3); Red Blood Cell Count 3.99 M/mm3 (3.80-5.20); White Blood Cell Count 10.41 K/mm3 (4.00-11.30)
[2024-04-22 06:56] LABS: Albumin/Globulin Ratio 0.6 (0.8-1.8); Bilirubin, Total 0.4 mg/dL (0.1-1.0); Bun/Creatinine Ratio 67.3 (12.0-20.0); Calcium, Blood 8.5 mg/dL (8.5-10.1); Creatinine, Blood 1.04 mg/dL (0.40-1.00); Globulin, Blood 3.6 g/dL (2.2-4.0); Magnesium, Blood 1.9 mg/dL (1.6-2.4); Potassium, Blood 3.6 mmol/L (3.5-5.5); Total Protein, Blood 5.6 g/dL (6.4-8.2)
[2024-04-22 07:42] VITALS: BP 130/62
--- NOTE | 2024-04-22 08:05 | NUR ---
PHYSICIAN CONTACT CALLED DR MOON WHO OKAYED CONTINUE USE OF SOFT L WRIST RESTRAINT FOR LINE PULLING AND NOT BEING ABLE TO REDIRECT FROM THIS BEHAVIOR.
[2024-04-22] MEDS ORDERED: Potassium Chloride 20 MEQ/15 ML UDC PO ONE (09:25)
[2024-04-22] MEDS ORDERED: Cephalexin Monohydrate 500 MG Cap PO SCH (09:30)
[2024-04-22] MEDS ORDERED: Polyethylene Glycol 3350 17 gm PO ONE (13:25)
[2024-04-22] MEDS ORDERED: Lactated Ringer's 1,000 ML IV SCH (13:25)
[2024-04-22 15:04] VITALS: BP 130/47
--- NOTE | 2024-04-22 18:19 | NUR ---
SHIFT SUMMARY PATIENT IN BED THIS SHIFT. PT USING PUREWICK, SMEAR BM. BOWEL MEDS GIVEN. NOT EATING WELL THIS SHIFT, ENCOURAGED ORAL INTAKE. CHANGED IV FLUIDS TO LR. SPLINT IN PLACE TO L ANKLE. CONTINUES TO REQUIRE SOFT L WRIST RESTRAINT. NO INSULIN COVERAGE NEEDED. TOLERATING PO ABX WELL.
[2024-04-22 19:38] VITALS: BP 142/71
[2024-04-22] MEDS ORDERED: Mirtazapine 15 MG SoluTab PO SCH (21:00)
[2024-04-23 02:49] VITALS: BP 95/54
[2024-04-23 06:28] LABS: BASOPHILS ABSOLUTE AUTO 0.09 K/mm3 (0.00-0.23); BASOPHILS PERCENT AUTO 1 % (0-2); EOSINOPHILS ABSOLUTE AUTO 0.38 K/mm3 (0.00-0.68); EOSINOPHILS PERCENT AUTO 4 % (0-6); Hematocrit 41.3 % (33.0-51.0); Hemoglobin 13.3 g/dL (11.5-16.0); IMMATURE GRAN ABSOLUTE AUTO 0.14 K/mm3 (0.00-0.10); IMMATURE GRAN PERCENT AUTO 1 % (0-1); LYMPHOCYTES ABSOLUTE AUTO 1.44 K/mm3 (0.84-5.20); LYMPHOCYTES PERCENT AUTO 14 % (21-46); MONOCYTES ABSOLUTE AUTO 0.74 K/mm3 (0.16-1.47); MONOCYTES PERCENT AUTO 7 % (4-13); Mean Corpuscular HGB 29.8 pg (26.0-34.0); Mean Corpuscular HGB Conc 32.2 g/dL (31.5-36.5); Mean Corpuscular Volume 93 fL (80-100); NEUTROPHILS ABSOLUTE AUTO 7.54 K/mm3 (1.96-9.15); NEUTROPHILS PERCENT AUTO 73 % (41-73); NRBC ABSOLUTE 0.02 K/mm3 (0.00-0.02); NRBC Auto 0.2 /100 WBC (0.0-0.2); RDW Coefficient Variation 15.3 % (11.7-14.2); RDW Standard Deviation 49.6 fL (35.1-46.3); Red Blood Cell Count 4.46 M/mm3 (3.80-5.20); White Blood Cell Count 10.33 K/mm3 (4.00-11.30)
[2024-04-23 06:36] LABS: Albumin, Blood 2.2 g/dL (3.4-5.0); Albumin/Globulin Ratio 0.5 (0.8-1.8); Bilirubin, Total 0.7 mg/dL (0.1-1.0); Bun/Creatinine Ratio 54.3 (12.0-20.0); Calcium, Blood 8.9 mg/dL (8.5-10.1); Creatinine, Blood 0.77 mg/dL (0.40-1.00); Globulin, Blood 4.2 g/dL (2.2-4.0); Magnesium, Blood 1.8 mg/dL (1.6-2.4); Potassium, Blood 4.6 mmol/L (3.5-5.5); Total Protein, Blood 6.4 g/dL (6.4-8.2)
[2024-04-23 07:12] LABS: Platelet Count 263 K/mm3 (150-400)
[2024-04-23 08:01] VITALS: BP 116/90
[2024-04-23] MEDS ORDERED: D5W-NS 1,000 ML IV SCH (08:45)
[2024-04-23] MEDS ORDERED: Dextrose 50% 50 ML Vial IV ONE (08:55)
[2024-04-23 16:04] VITALS: BP 148/65
--- NOTE | 2024-04-23 17:45 | NUR ---
SHIFT SUMMARY PATIENT IN BED THIS SHIFT, NO VISITORS. PULLED IV, NEW ONE PLACED AFTER SEVERAL ATTEMPTS. NO BM. ABLE TO VERBALIZE NEED TO URINATE, USED BEDPAN SUCCESSFULLY. PUREWICK REPLACED. REFUSING ORAL CARE SEVERAL TIMES. REFUSING TO EAT, ENCOURAGED THROUGHOUT SHIFT WITH NO CHANGE. ACCEPTING OF MEDICATIONS CRUSHED IN PUDDING. LOW BLOOD GLUCOSE THIS AM, TREATED AND MAINTAINED REASONABLE VALUES THROUGH REST OF SHIFT.
[2024-04-24 03:24] VITALS: BP 140/107
[2024-04-24 07:12] VITALS: BP 151/60
[2024-04-24 07:34] LABS: BASOPHILS ABSOLUTE AUTO 0.03 K/mm3 (0.00-0.23); BASOPHILS PERCENT AUTO 0 % (0-2); EOSINOPHILS ABSOLUTE AUTO 0.45 K/mm3 (0.00-0.68); EOSINOPHILS PERCENT AUTO 6 % (0-6); Hematocrit 36.1 % (33.0-51.0); Hemoglobin 11.4 g/dL (11.5-16.0); IMMATURE GRAN ABSOLUTE AUTO 0.07 K/mm3 (0.00-0.10); IMMATURE GRAN PERCENT AUTO 1 % (0-1); LYMPHOCYTES ABSOLUTE AUTO 1.92 K/mm3 (0.84-5.20); LYMPHOCYTES PERCENT AUTO 23 % (21-46); MONOCYTES ABSOLUTE AUTO 0.86 K/mm3 (0.16-1.47); MONOCYTES PERCENT AUTO 10 % (4-13); Mean Corpuscular HGB 29.1 pg (26.0-34.0); Mean Corpuscular HGB Conc 31.6 g/dL (31.5-36.5); Mean Corpuscular Volume 92 fL (80-100); Mean Platelet Volume 10.6 fL (9.1-12.4); NEUTROPHILS ABSOLUTE AUTO 4.91 K/mm3 (1.96-9.15); NEUTROPHILS PERCENT AUTO 60 % (41-73); NRBC ABSOLUTE 0.02 K/mm3 (0.00-0.02); NRBC Auto 0.2 /100 WBC (0.0-0.2); Platelet Count 256 K/mm3 (150-400); RDW Coefficient Variation 15.5 % (11.7-14.2); RDW Standard Deviation 49.4 fL (35.1-46.3); Red Blood Cell Count 3.92 M/mm3 (3.80-5.20); White Blood Cell Count 8.24 K/mm3 (4.00-11.30)
[2024-04-24 08:03] LABS: Albumin/Globulin Ratio 0.6 (0.8-1.8); Bilirubin, Total 0.6 mg/dL (0.1-1.0); Bun/Creatinine Ratio 35.6 (12.0-20.0); Calcium, Blood 8.3 mg/dL (8.5-10.1); Creatinine, Blood 0.7 mg/dL (0.40-1.00); Globulin, Blood 3.5 g/dL (2.2-4.0); Magnesium, Blood 1.7 mg/dL (1.6-2.4); Potassium, Blood 4.3 mmol/L (3.5-5.5); Total Protein, Blood 5.5 g/dL (6.4-8.2)
[2024-04-24 15:29] VITALS: BP 132/55
--- NOTE | 2024-04-24 15:30 | NUR ---
PATIENTS FAMILY AT BEDSIDE. UPDATED BY PROVIDER. MORE FAMILY WILL BE IN ON WEDNESDAY. FAMILY IS OPEN TO ANY DIRECTION OF CARE NECESSARY DEPENDING ON HOW ZAHIDA DOES OVER THE NEXT FEW DAYS. THEY RELAYED THAT SHE WOULD NOT WANT A FEEDING TUBE AND UNDERSTAND THAT THIS MAY MEAN SHE GOES HOME ON HOSPICE IF HER APPETITE DOES NOT IMPROVE
[2024-04-24 16:43] LABS: Calcium, Blood 8.3 mg/dL (8.5-10.1); Creatinine, Blood 0.68 mg/dL (0.40-1.00); Potassium, Blood 3.9 mmol/L (3.5-5.5)
--- NOTE | 2024-04-24 18:47 | NUR ---
SHIFT SUMMARY PT CONT LEVEL OF CARE. PT NOTED TO BE A&O TO SELF AND FAMILY, PT NOTED TO BE THREE AFFILIATED. PT CONT TO REMAIN IN SOFT WRIST RESTRAINTS D/T PULLING AT LINES. PT NOTED TO EAT ABOUT 15% AND 1/4 OF MAGIC CUP. PT NOTED TO VOMIT RIGHT AFTER EATING. PT LUNGS NOTED TO BE CLEAR AND PHYSICIAN WAS NOTIFIED WITH NO NEW ORDERS. PT NOTED TO REFUSE TO EAT OR DRINK SINCE THIS SHIFT. PT ONLY NOTED TO VOID X1 THIS SHIFT. PHYSICIAN SPOKE WITH FAMILY ABOUT TX OPTIONS PER FAMILY PT WOULD NOT WANT FEEDING TUBE OR PPN PHYSICIAN SPOKE WITH FAMILY ABOUT POSSIBILITY OF HOSPICE IF PT DOESNT MAKE IMPROVEMENTS.
[2024-04-24 20:31] VITALS: BP 121/98
--- NOTE | 2024-04-25 03:23 | NUR ---
WASTE WATER WORKER SUMMARY DIASTOLIC BP ELEVATED, OTHERWISE VSS. REMAINS IN BILAT WRIST SOFT RESTRAINTS PER MD ORDERS TO PREVENT PULLING OUT IVS, BUT SHE WAS ABLE TO PULL OF CUFF AND PULL OUT IV EARLIER. RESTRAINTS REAPPLIED. MULTIPLE ATTEMPTS TO PLACE ANOTHER IV SO FAR UNABLE TO GET ONE. VERY QUIET, FEW WORDS SPOKEN. INTERMITTENT RESTING. HOB ELEVATED. NO VOIDING OF THIS WRITING. BLADDER SCAN 114 ML. WILL CONTINUE TO MONITOR. RAILS UP X 2, CALL LIGHT IN REACH AND BED IN LOW POSITION FOR SAFETY.
[2024-04-25 04:57] VITALS: BP 134/89
[2024-04-25 06:28] LABS: BASOPHILS ABSOLUTE AUTO 0.05 K/mm3 (0.00-0.23); BASOPHILS PERCENT AUTO 1 % (0-2); EOSINOPHILS ABSOLUTE AUTO 0.45 K/mm3 (0.00-0.68); EOSINOPHILS PERCENT AUTO 6 % (0-6); Hematocrit 37.5 % (33.0-51.0); Hemoglobin 11.9 g/dL (11.5-16.0); IMMATURE GRAN PERCENT AUTO 1 % (0-1); LYMPHOCYTES ABSOLUTE AUTO 1.34 K/mm3 (0.84-5.20); LYMPHOCYTES PERCENT AUTO 16 % (21-46); MONOCYTES PERCENT AUTO 10 % (4-13); Mean Corpuscular HGB 29.6 pg (26.0-34.0); Mean Corpuscular HGB Conc 31.7 g/dL (31.5-36.5); Mean Corpuscular Volume 93 fL (80-100); Mean Platelet Volume 10.4 fL (9.1-12.4); NEUTROPHILS ABSOLUTE AUTO 5.43 K/mm3 (1.96-9.15); NEUTROPHILS PERCENT AUTO 67 % (41-73); NRBC ABSOLUTE 0.02 K/mm3 (0.00-0.02); NRBC Auto 0.2 /100 WBC (0.0-0.2); Platelet Count 277 K/mm3 (150-400); RDW Coefficient Variation 15.8 % (11.7-14.2); RDW Standard Deviation 51.6 fL (35.1-46.3); Red Blood Cell Count 4.02 M/mm3 (3.80-5.20); White Blood Cell Count 8.17 K/mm3 (4.00-11.30)
[2024-04-25 06:58] LABS: Albumin/Globulin Ratio 0.5 (0.8-1.8); Bilirubin, Total 0.6 mg/dL (0.1-1.0); Bun/Creatinine Ratio 27.2 (12.0-20.0); Calcium, Blood 8.7 mg/dL (8.5-10.1); Creatinine, Blood 0.66 mg/dL (0.40-1.00); Globulin, Blood 3.8 g/dL (2.2-4.0); Magnesium, Blood 1.8 mg/dL (1.6-2.4); Potassium, Blood 3.6 mmol/L (3.5-5.5); Total Protein, Blood 5.8 g/dL (6.4-8.2)
[2024-04-25 07:07] VITALS: BP 138/52
[2024-04-25] MEDS ORDERED: Dextrose 5% 500 ML IV ONE (08:05)
[2024-04-25 15:00] VITALS: BP 123/55
[2024-04-25 16:07] LABS: Bun/Creatinine Ratio 23.1 (12.0-20.0); Creatinine, Blood 0.74 mg/dL (0.40-1.00); Potassium, Blood 3.5 mmol/L (3.5-5.5)
[2024-04-25] MEDS ORDERED: Dextrose 5% 1,000 ML IV SCH (17:45)
[2024-04-25] MEDS ORDERED: D5W-NS 1,000 ML IV SCH (17:45)
--- NOTE | 2024-04-25 17:48 | NUR ---
PATIENT A/O TO SELF AND FAMILY, BEDREST DUE TO WEAKNESS AND L ANKLE FX. PATIENT ALERT THROUGHOUT THIS SHIFT. HAS NAUSEA WITH MEALS AND ZOFRAN GIVEN X2 PRIOR TO EATING TO CONTROL. REMAINS IN BILATEAL SOFT WRIST RESTRAINTS TO PROTICT LINES. SON AT BEDSIDE THROUGHOUT THE DAY. SPOKE WITH SISTER THIS EVENING AND PATIENT IS SCHEDULED FOR A ANKLE CT TOMORROW OUTPATIENT.
[2024-04-25 19:57] VITALS: BP 138/76
--- NOTE | 2024-04-25 21:49 | NUR ---
AUTOMATION TEST ENGINEER SUMMARY VSS. RERMAINS MOSTLY QUIET WHEN SPOKEN TO. REFUSED MOST OF MEDS AT HS, SPITTING THEM OUT AND REFUSING TO REDIRECT. IVF INFUSING AT 100 ML/HR ORDERED. REPOSITIONED INTERMITTENTLY FOR COMFORT, BILAT WRIST RESTRAINTS IN PLACE PER MD ORDERS TO PREVENT PULLING OUT IV. HOB ELEVATED. RESPS EVEN. NO NOTED S/S PAIN. HAS BEEN RESTING QUIETLY WITH FEW INTERRUPTIONS. CALL LIGHT IN REACH, RAILS UP X 2 AND BED IN LOW POSITION FOR SAFETY. WILL CONT TO ANTIONE
[2024-04-26 03:36] VITALS: BP 146/61
[2024-04-26 06:22] LABS: BASOPHILS ABSOLUTE AUTO 0.05 K/mm3 (0.00-0.23); BASOPHILS PERCENT AUTO 1 % (0-2); EOSINOPHILS ABSOLUTE AUTO 0.44 K/mm3 (0.00-0.68); EOSINOPHILS PERCENT AUTO 5 % (0-6); Hematocrit 34.9 % (33.0-51.0); Hemoglobin 10.9 g/dL (11.5-16.0); IMMATURE GRAN ABSOLUTE AUTO 0.11 K/mm3 (0.00-0.10); IMMATURE GRAN PERCENT AUTO 1 % (0-1); LYMPHOCYTES ABSOLUTE AUTO 1.89 K/mm3 (0.84-5.20); LYMPHOCYTES PERCENT AUTO 22 % (21-46); MONOCYTES ABSOLUTE AUTO 0.87 K/mm3 (0.16-1.47); MONOCYTES PERCENT AUTO 10 % (4-13); Mean Corpuscular HGB 29.5 pg (26.0-34.0); Mean Corpuscular HGB Conc 31.2 g/dL (31.5-36.5); Mean Corpuscular Volume 95 fL (80-100); Mean Platelet Volume 10.5 fL (9.1-12.4); NEUTROPHILS ABSOLUTE AUTO 5.25 K/mm3 (1.96-9.15); NEUTROPHILS PERCENT AUTO 61 % (41-73); NRBC ABSOLUTE 0.03 K/mm3 (0.00-0.02); NRBC Auto 0.3 /100 WBC (0.0-0.2); Platelet Count 250 K/mm3 (150-400); RDW Standard Deviation 52.9 fL (35.1-46.3); Red Blood Cell Count 3.69 M/mm3 (3.80-5.20); White Blood Cell Count 8.61 K/mm3 (4.00-11.30)
[2024-04-26 06:48] LABS: Albumin, Blood 1.9 g/dL (3.4-5.0); Albumin/Globulin Ratio 0.6 (0.8-1.8); Bilirubin, Total 0.5 mg/dL (0.1-1.0); Bun/Creatinine Ratio 19.9 (12.0-20.0); Calcium, Blood 8.3 mg/dL (8.5-10.1); Creatinine, Blood 0.71 mg/dL (0.40-1.00); Globulin, Blood 3.4 g/dL (2.2-4.0); Magnesium, Blood 1.5 mg/dL (1.6-2.4); Potassium, Blood 4.2 mmol/L (3.5-5.5); Total Protein, Blood 5.3 g/dL (6.4-8.2)
[2024-04-26 07:15] VITALS: BP 99/83
[2024-04-26] MEDS ORDERED: Magnesium Sulf 2 GM/Water 50ML 50 ML IV ONE (08:15)
[2024-04-26 15:29] VITALS: BP 153/75
--- NOTE | 2024-04-26 18:01 | NUR ---
SHIFT SUMMARY A/OX2, CONFUSED BUT PLEASANT. BILATERAL WRIST RESTRAINTS REMOVED TODAY, PATIENT HAS NOT PULLED LINES AND HAS BEEN COOPERATIVE WITH CARE, CT OBTAINED OF LEFT ANKLE THIS EVENING. FAMILY AT BEDSIDE MOST OF SHIFT. PATIENT BLADDER SCANNED THIS EVENING HAS HAD MINIMAL OUTPUT, BLADDER SCAN SHOWS 127ML MOST RECENT. NO OTHER CONCERNS AT THIS TIME.
[2024-04-26 19:20] VITALS: BP 136/61
[2024-04-27 02:22] VITALS: BP 122/57
[2024-04-27 05:56] LABS: BASOPHILS ABSOLUTE AUTO 0.06 K/mm3 (0.00-0.23); BASOPHILS PERCENT AUTO 1 % (0-2); EOSINOPHILS ABSOLUTE AUTO 0.37 K/mm3 (0.00-0.68); EOSINOPHILS PERCENT AUTO 5 % (0-6); Hematocrit 32.9 % (33.0-51.0); Hemoglobin 10.6 g/dL (11.5-16.0); IMMATURE GRAN PERCENT AUTO 1 % (0-1); LYMPHOCYTES ABSOLUTE AUTO 1.98 K/mm3 (0.84-5.20); LYMPHOCYTES PERCENT AUTO 26 % (21-46); MONOCYTES ABSOLUTE AUTO 0.77 K/mm3 (0.16-1.47); MONOCYTES PERCENT AUTO 10 % (4-13); Mean Corpuscular HGB 29.4 pg (26.0-34.0); Mean Corpuscular HGB Conc 32.2 g/dL (31.5-36.5); Mean Corpuscular Volume 91 fL (80-100); Mean Platelet Volume 10.3 fL (9.1-12.4); NEUTROPHILS ABSOLUTE AUTO 4.37 K/mm3 (1.96-9.15); NEUTROPHILS PERCENT AUTO 57 % (41-73); NRBC ABSOLUTE 0.03 K/mm3 (0.00-0.02); NRBC Auto 0.4 /100 WBC (0.0-0.2); Platelet Count 254 K/mm3 (150-400); RDW Coefficient Variation 16.1 % (11.7-14.2); RDW Standard Deviation 50.7 fL (35.1-46.3); Red Blood Cell Count 3.61 M/mm3 (3.80-5.20); White Blood Cell Count 7.65 K/mm3 (4.00-11.30)
[2024-04-27 06:25] LABS: Albumin, Blood 1.8 g/dL (3.4-5.0); Albumin/Globulin Ratio 0.5 (0.8-1.8); Bilirubin, Total 0.6 mg/dL (0.1-1.0); Bun/Creatinine Ratio 18.3 (12.0-20.0); Calcium, Blood 7.8 mg/dL (8.5-10.1); Creatinine, Blood 0.66 mg/dL (0.40-1.00); Globulin, Blood 3.4 g/dL (2.2-4.0); Magnesium, Blood 1.8 mg/dL (1.6-2.4); Potassium, Blood 3.6 mmol/L (3.5-5.5); Total Protein, Blood 5.2 g/dL (6.4-8.2)
--- NOTE | 2024-04-27 06:31 | NUR ---
SHIFT SUMMARY: Pt is admitted for MÓNICA and is a full code. Is alert and able to make needs known. ADLs are 2 but is on bed rest due to left ankle FX. states she has some pain when moving ankle but nothing when ankle at rest. Ankle is in a cast with good PMS.
[2024-04-27 07:30] VITALS: BP 99/39
[2024-04-27 07:34] VITALS: BP 130/69
[2024-04-27 16:31] VITALS: BP 101/44
[2024-04-27 19:16] VITALS: BP 119/46
--- NOTE | 2024-04-27 19:40 | NUR ---
SUMMARY PATIENT RETAINING URINE. BLADDER SCAN 560'S. NO BLADDER MANAGEMENT PROTOCOL ORDERED. CALLED KAMERON KIM WHO ORDERED STRAIGHT CATH AND PROTOCOL. PT WORKED WITH PATIENT AND HAD HER SUZANNE RAINEY EOB TODAY.
--- NOTE | 2024-04-27 22:36 | NUR ---
STRAIGHT CATH PERFORMED PT RETAINING URINE. BLADDER SCAN OF 678. PT UNABLE TO VOID. ORDER FOR STRAIGHT CATH PER PROTOCOL. 700ML OF URINE OUT WITH STRAIGHT CATH. 3X ATTEMPTS DUE TO PT TENSING AND CATHETAR LOOPING. STERILE TECHNIQUE MAINTAINED. PT TOLERATED WELL.
[2024-04-28 02:52] VITALS: BP 138/63
--- NOTE | 2024-04-28 05:48 | NUR ---
SHIFT SUMMARY PT ALERT AND ORIENTED TIMES 1-2 . PT IS INCONT OF URINE AND BOWEL. PT TOOK HS MEDICATION. PT RECEPTIVE TO CARE. PT APPEARS TO HAVE SLEPT THROUGH THE NIGHT ON AND OFF. PT HAD ORDER FOR STRAIGHT CATH TO WHICH 700ML WAS DRAINED. BED IN LOW POSITION, CALL LIGHT WITHIN REACH, RAILS TIMES 2.
[2024-04-28 05:58] LABS: BASOPHILS ABSOLUTE AUTO 0.07 K/mm3 (0.00-0.23); BASOPHILS PERCENT AUTO 1 % (0-2); EOSINOPHILS ABSOLUTE AUTO 0.42 K/mm3 (0.00-0.68); EOSINOPHILS PERCENT AUTO 5 % (0-6); Hematocrit 32.2 % (33.0-51.0); Hemoglobin 10.4 g/dL (11.5-16.0); IMMATURE GRAN ABSOLUTE AUTO 0.11 K/mm3 (0.00-0.10); IMMATURE GRAN PERCENT AUTO 1 % (0-1); LYMPHOCYTES ABSOLUTE AUTO 1.94 K/mm3 (0.84-5.20); LYMPHOCYTES PERCENT AUTO 25 % (21-46); MONOCYTES ABSOLUTE AUTO 0.78 K/mm3 (0.16-1.47); MONOCYTES PERCENT AUTO 10 % (4-13); Mean Corpuscular HGB 29.3 pg (26.0-34.0); Mean Corpuscular HGB Conc 32.3 g/dL (31.5-36.5); Mean Corpuscular Volume 91 fL (80-100); Mean Platelet Volume 10.7 fL (9.1-12.4); NEUTROPHILS ABSOLUTE AUTO 4.43 K/mm3 (1.96-9.15); NEUTROPHILS PERCENT AUTO 57 % (41-73); NRBC ABSOLUTE 0.02 K/mm3 (0.00-0.02); NRBC Auto 0.3 /100 WBC (0.0-0.2); Platelet Count 272 K/mm3 (150-400); RDW Coefficient Variation 16.3 % (11.7-14.2); Red Blood Cell Count 3.55 M/mm3 (3.80-5.20); White Blood Cell Count 7.75 K/mm3 (4.00-11.30)
[2024-04-28 06:31] LABS: Magnesium, Blood 1.7 mg/dL (1.6-2.4)
[2024-04-28 06:32] LABS: Albumin, Blood 1.7 g/dL (3.4-5.0); Albumin/Globulin Ratio 0.5 (0.8-1.8); Bilirubin, Total 0.6 mg/dL (0.1-1.0); Bun/Creatinine Ratio 24.4 (12.0-20.0); Calcium, Blood 7.5 mg/dL (8.5-10.1); Creatinine, Blood 0.57 mg/dL (0.40-1.00); Globulin, Blood 3.3 g/dL (2.2-4.0); Potassium, Blood 3.7 mmol/L (3.5-5.5)
[2024-04-28 07:26] VITALS: BP 108/33
[2024-04-28] MEDS ORDERED: MIRT15ST PO (12:32)
--- NOTE | 2024-04-28 15:37 | NUR ---
DISCHARGE NOTE PATIENT DISCHARGING TO [facility]. REPORT GIVEN TO JILLIAN AND TOLD HIM SHE STILL HAS IV PRESENT. I FORGOT TO REMOVE PRIOR TO TRANSER. BELONGINGS GATHERED AND SENT WITH PATIENT. FAMILY WAS PRESENT AND AWARE OF TRANSFER. HARD SCRIPT IN PACKET AND SENT WITH PATIENT.
== END 2024-04-28 15:15 | DRG 682 ==
LOC: ER 17:51 → MEDS 22:35 → ERHOLD 22:35 → MEDS 04-21 00:14
PROVIDERS: Emergency Medicine; Family Medicine; Nurse Practitioner Acute Care; Student in an Organized Health Care Education/Training Program; ADMIT Student in an Organized Health Care Education/Training Program
DX: N17.9 Acute kidney failure, unspecified (principal); A41.9 Sepsis, unspecified organism; G92.8 Other toxic encephalopathy; R65.20 Severe sepsis without septic shock; E87.0 Hyperosmolality and hypernatremia; E87.20 Acidosis, unspecified; N39.0 Urinary tract infection, site not specified; N18.30 Chronic kidney disease, stage 3 unspecified; I48.91 Unspecified atrial fibrillation; E11.22 Type 2 diabetes mellitus with diabetic chronic kidney disease; E78.5 Hyperlipidemia, unspecified; G89.29 Other chronic pain; R62.7 Adult failure to thrive; G47.33 Obstructive sleep apnea (adult) (pediatric); S82.852D Displaced trimalleolar fracture of left lower leg, subsequent encounter for closed fracture with routine healing; W18.30XD Fall on same level, unspecified, subsequent encounter; I12.9 Hypertensive chronic kidney disease with stage 1 through stage 4 chronic kidney disease, or unspecified chronic kidney disease; M81.0 Age-related osteoporosis without current pathological fracture; F32.A Depression, unspecified; Z78.1 Physical restraint status; E86.0 Dehydration; H91.90 Unspecified hearing loss, unspecified ear
CPT/HCPCS: 36415; 70450; 71045; 73700; 74018; 80048; 80053; 81001; 82550; 82947; 83690; 83735; 84443; 85025; 87086; 92526; 92610; 96360; 97110; 97161; 97530; 99285-25; A9270; C1751; J0696; J1644; J2405; J3475; J7030; J7042; J7060; J7070; J7120; J7799

== ENCOUNTER 2024-06-23 19:53 | Observation (INO) | payer MEDICARE ==
[~2024-06-23] VITALS: Ht 165.1 cm; Wt 127.0 kg
[~2024-06-23 19:53] MED LIST changes: +BISA10S PR; +CEFD300 PO; +DEXTROMETHORPHAN PO; +GUAIFENESIN PO; +LOSA50 PO; +MIRT15ST PO; +ONDA4 PO; +OXYC5 PO
[2024-06-23 20:40] LABS: BASOPHILS ABSOLUTE AUTO 0.04 K/mm3 (0.00-0.23); BASOPHILS PERCENT AUTO 0 % (0-2); EOSINOPHILS PERCENT AUTO 1 % (0-6); Hematocrit 39.5 % (33.0-51.0); Hemoglobin 11.9 g/dL (11.5-16.0); IMMATURE GRAN ABSOLUTE AUTO 0.07 K/mm3 (0.00-0.10); IMMATURE GRAN PERCENT AUTO 1 % (0-1); LYMPHOCYTES ABSOLUTE AUTO 2.57 K/mm3 (0.84-5.20); LYMPHOCYTES PERCENT AUTO 24 % (21-46); MONOCYTES ABSOLUTE AUTO 0.82 K/mm3 (0.16-1.47); MONOCYTES PERCENT AUTO 8 % (4-13); Mean Corpuscular HGB 28.3 pg (26.0-34.0); Mean Corpuscular HGB Conc 30.1 g/dL (31.5-36.5); Mean Corpuscular Volume 94 fL (80-100); Mean Platelet Volume 11.3 fL (9.1-12.4); NEUTROPHILS ABSOLUTE AUTO 6.93 K/mm3 (1.96-9.15); NEUTROPHILS PERCENT AUTO 66 % (41-73); NRBC ABSOLUTE 0.12 K/mm3 (0.00-0.02); NRBC Auto 1.1 /100 WBC (0.0-0.2); Platelet Count 272 K/mm3 (150-400); RDW Coefficient Variation 17.5 % (11.7-14.2); RDW Standard Deviation 59.7 fL (35.1-46.3); White Blood Cell Count 10.53 K/mm3 (4.00-11.30)
[2024-06-23 20:53] LABS: Free Thyroxine 0.84 ng/dL (0.70-1.60); Thyroid Stimulating Hormone 1.73 uIU/mL (0.360-4.800)
[2024-06-23 20:55] LABS: Bun/Creatinine Ratio 47.8 (12.0-20.0); Calcium, Blood 8.9 mg/dL (8.5-10.1); Creatinine, Blood 1.57 mg/dL (0.40-1.00); Potassium, Blood 8.4 mmol/L (3.5-5.5)
[2024-06-23] MEDS ORDERED: Dextrose 50% 50 ML Syringe IV ONE ×3 (21:00→22:35)
[2024-06-23] MEDS ORDERED: Sodium Zirconium Cyclosilicate 10 GM Packet PO ONE (21:00)
[2024-06-23] MEDS ORDERED: Insulin Regular 100 Unit/ML 1ML Dose IV ONE ×2 (21:00→21:55)
[2024-06-23] MEDS ORDERED: Albuterol 2.5 MG/3 ML VIAL INH SCH (21:00)
[2024-06-23] MEDS ORDERED: Calcium Gluconate 10% 100 MG/ML INJ IV ONE (21:00)
[2024-06-23] MEDS ORDERED: Furosemide 10 MG/ML 4ML Vial IV ONE ×2 (21:00→23:15)
[2024-06-23] MEDS ORDERED: Dextrose 50% 50 ML Vial IV ONE ×2 (21:05→22:50)
[2024-06-23] MEDS ORDERED: Morphine Sulfate 4 MG/1 ML Injection IV ONE ×2 (21:30→23:10)
[2024-06-23] MEDS ORDERED: CALCIUM GLUC IN NACL, ISO-OSM 50 ML IV ONE (21:40)
[2024-06-23 22:04] LABS: Magnesium, Blood 2.2 mg/dL (1.6-2.4); Phosphorus, Blood 4.5 mg/dL (2.5-4.9)
[2024-06-23 23:01] LABS: Source, Urine Clean Catch
[2024-06-23] MEDS ORDERED: Ondansetron HCl 2 MG / ML 2ML Vial IV PRN (23:05)
[2024-06-23] MEDS ORDERED: Dextrose 5% 1,000 ML IV SCH (23:05)
[2024-06-23 23:21] LABS: Appearance, Urine Turbid (Clear); Blood, Urine 5+ (Neg); Color, Urine Amber (P-Yellow); Glucose Qualitative, Urine 1+ (Neg); Ketones, Urine Neg (Neg); Leukocyte Esterase, Urine 3+ (Neg); Nitrite, Urine Neg (Neg); Protein, Urine 4+ (Neg); Urobilinogen, Urine 1+ (Normal); pH, Urine 6.5 (5.0-8.0)
[2024-06-23 23:44] LABS: Bilirubin, Urine 1+ (Neg)
[2024-06-23 23:47] LABS: Bacteria Many /hpf; Squamous Epithelial Cells Mod /hpf (Few); White Blood Cells, Urine TNTC /hpf (0-5)
[2024-06-24] VITALS (7 sets, daily range): BP systolic 94–125; BP diastolic 54–64
[2024-06-24] MEDS ORDERED: CefTRIAXone Sodium 1,000 MG in NS 100 ML IV ONE (00:10)
[2024-06-24 00:23] LABS: Bun/Creatinine Ratio 45.5 (12.0-20.0); Calcium, Blood 9.4 mg/dL (8.5-10.1); Creatinine, Blood 1.67 mg/dL (0.40-1.00); Potassium, Blood 3.3 mmol/L (3.5-5.5)
[2024-06-24 05:26] LABS: BASOPHILS ABSOLUTE AUTO 0.06 K/mm3 (0.00-0.23); BASOPHILS PERCENT AUTO 1 % (0-2); EOSINOPHILS PERCENT AUTO 1 % (0-6); Hematocrit 41.9 % (33.0-51.0); Hemoglobin 12.7 g/dL (11.5-16.0); IMMATURE GRAN ABSOLUTE AUTO 0.06 K/mm3 (0.00-0.10); IMMATURE GRAN PERCENT AUTO 1 % (0-1); LYMPHOCYTES ABSOLUTE AUTO 2.51 K/mm3 (0.84-5.20); LYMPHOCYTES PERCENT AUTO 24 % (21-46); MONOCYTES ABSOLUTE AUTO 0.83 K/mm3 (0.16-1.47); MONOCYTES PERCENT AUTO 8 % (4-13); Mean Corpuscular HGB 28.3 pg (26.0-34.0); Mean Corpuscular HGB Conc 30.3 g/dL (31.5-36.5); Mean Corpuscular Volume 94 fL (80-100); Mean Platelet Volume 11.4 fL (9.1-12.4); NEUTROPHILS ABSOLUTE AUTO 6.97 K/mm3 (1.96-9.15); NEUTROPHILS PERCENT AUTO 66 % (41-73); NRBC ABSOLUTE 0.13 K/mm3 (0.00-0.02); NRBC Auto 1.2 /100 WBC (0.0-0.2); Platelet Count 197 K/mm3 (150-400); RDW Coefficient Variation 17.5 % (11.7-14.2); Red Blood Cell Count 4.48 M/mm3 (3.80-5.20); White Blood Cell Count 10.53 K/mm3 (4.00-11.30)
[2024-06-24 05:51] LABS: Albumin, Blood 2.3 g/dL (3.4-5.0); Albumin/Globulin Ratio 0.7 (0.8-1.8); Bilirubin, Total 0.6 mg/dL (0.1-1.0); Bun/Creatinine Ratio 42.8 (12.0-20.0); Calcium, Blood 9.3 mg/dL (8.5-10.1); Creatinine, Blood 1.66 mg/dL (0.40-1.00); Globulin, Blood 3.3 g/dL (2.2-4.0); Potassium, Blood 3.2 mmol/L (3.5-5.5); Total Protein, Blood 5.6 g/dL (6.4-8.2)
--- NOTE | 2024-06-24 06:22 | NUR ---
74 Y/O FEMALE ADMITTED AT 1220 TODAY FOR HIGH SODIUM AND POTASSIUM LEVELS. PATIENT IS FROM [facility]. ALTERED MENTATION AT BASELINE. MARY'S IGLOO. NPO, SAUCEDO CATHETER. ON 1 LITER OF O2 PER NC. PATIENT MAINLY ABDUNDED. DOES NOT MAKE PURPOSEFUL MOVES. PER PREVIOUS NOTES PATIENT WAS TO BEGIN HOSPICE TODAY. NO FAMILY PRESENT UPON ADMISSION. PUPILS ARE SLUGGISH. CONTINUE CARE.
[2024-06-24] MEDS ORDERED: Scopolamine Hydrobromide Patch TOP PRN (08:10)
[2024-06-24] MEDS ORDERED: Acetaminophen 160MG / 5ML 10.15 UDC PO PRN (08:10)
[2024-06-24] MEDS ORDERED: Morphine Sulfate 20 MG/1ML 1 ML Oral Syringe SL PRN (08:10)
[2024-06-24] MEDS ORDERED: LORazepam 2 MG/ML 1ML Injection IV PRN (08:10)
--- NOTE | 2024-06-24 08:46 | NUR ---
AT 0715 THIS RN AND RUBBER SPLICER CAROLYNE Stringer GOT BEDSIDE SHIFT REPORT FROM MERLENE HICKS. AFTER BEDSIDE REPORT, WE BEGAN THE PT'S MORNING ASSESSMENT. THE PT IS SOMULENT AND DOES NOT WAKE TO VERBAL STIMULI. SHE OCCASIONALLY WAKES TO PHYSICAL STIMULI BUT DOES TAKE SOME FIRM SHAKING TO AWAKE, BUT THE PT DOES NOT STAY AWAKE. WHEN ASSESSING HER PUPILS THEY WERE 5MM SLUGISH TO RESPOND AND THEN THE PT CLOSED HER EYES AND WHEN WE OPENED HER EYES AGAIN TO REASSESS HE EYE WER FIXED AT 2-3MM. WHILE ASSESSING THE PT'S VITALS HER RESP RATE WAS 9-10. SR ON TELE. SP02 >93% ON 0.5L NC. PT RESTING IN THE ROOM WITH EASE. THIS RN CALLED TROLLEY CAR OPERATOR WILLIAM TO SEE IF WE NEED TO HAVE TO PT ON CO2 MONITORING AND TROLLEY CAR OPERATOR STATED THE PT'S DOCTOR, DR. HENRIQUEZ, WAS ON THE UNIT AND HEADED INTO THE ROOM. DR. LAMAR CAME TO THE ROOM AND THIS RN INFORMED THE PROVIDER OF OUR FINDINGS. DR. LAMAR ASSESSED THE PT AND DISCUSSED HOW THE PT IS SUPPOSED TO BE GOING HOSPICE BUT THE PT IS ACTIVELY DECLINING AND THAT SHE WAS GOING TO CALL THE PT'S POA HER SON . DR. LAMAR CALLED THE PT'S SON AND TRANSITIONED THE PT TO COMFORT CARE. THE PT'S SON IS SUPPOSSED TO BE HEADING THIS WAY FROM [place]. SEE NOTES FOR UPDATES.
--- NOTE | 2024-06-24 11:22 | NUR ---
THE PT'S SISTER'S AND [id number] CAME TO THE ROOM AND WERE UPDATED ON CARE. THE PT WILL BE GETTING TRANSFERED TO ROOM 364. A COMFORT CARE CART WAS ORDERED FOR ROOM 364. PALLIATIVE CARE CALLED. THE PT'S SON LEEANN WAS CALLED AND IS DRIVING UP FROM [place]. IT IS ABOUT 13.4 HR AWAY.
[2024-06-24] MEDS ORDERED: Atropine Sulfate 1% Opth Soln 2ML BTL SL PRN (12:10)
[2024-06-24] MEDS ORDERED: LORazepam 1 MG Tab PO PRN (12:10)
[2024-06-24] MEDS ORDERED: Acetaminophen 650 MG Supp PR PRN (12:10)
--- NOTE | 2024-06-24 12:12 | NUR ---
COMFORT CARE/SUPPORTIVE VISIT CALLED TO ROOM BY BEDSIDE RN FOR FAMILY SUPPORT. PT IS OBTUNDED. RESPIRATIONS EUL, SHALLOW. NO APNEA NOTED AT THIS TIME. NO S/SX OF DISTRESS NOTED AT THIS TIME. THERAPUTIC LISTENING PROVIDED TO FAMILY AT BEDSIDE. PT'S SISTER'S, CIRILO AND OVIDIO WALSH AND SCAR MORENO ARE PRESENT. PT'S SON LEEANN IS ENROUTE FROM [facility], ETA 2300 TONIGHT. TELEPHONE ORDERS RCV'D FROM PROVIDER TO ADD ATROPINE, PO ATIVAN AND MS TYLENOL, UPDATE COMFORT CARE ORDERS. PT AND FAMILY ARE KNOWN TO THIS SUPERVISOR PUBLICATIONS FROM THE COMMUNITY.
--- NOTE | 2024-06-24 12:39 | NUR ---
TRANSFER NOTE GOT REPORT FROM DIRECTOR HOME. PT ARRIVED ON FLOOR AT 1225. PT FLOATED/REPOSITIONED, PT WOKE FOR TURN, NO SIGNS OF PAIN. PT ON COMFORT CARE. RESPIRATIONS ARE SLOW AND IRREGULAR. PT UNRESPONSIVE, DOES NOT RESPOND TO VERBAL PALLIATIVE CARE NOTIFIED PT ON FLOOR. NO FAMILY AT BEDSIDE. PT IN BED, BED IN LOWEST POSITION, CALL LIGHT IN REACH, SAUCEDO DRAINING ADEQUATE.
--- NOTE | 2024-06-24 15:57 | NUR ---
SYMPTOM MANAGEMENT / SUPPORTIVE VISIT CALLED TO ROOM BY BEDSIDE RN FOR ASSESSMENT OF PAIN/ANXIETY. PT IS SOMNOLENT. VERY HARD OF HEARING. SHE DOES NOT HAVE HEARING AIDS WITH HER. SHE OPENS HER EYES AND CAN MAKE CONTACT WHEN IN HER DIRECT LINE OF SIGHT. INABILITY TO HOLD SELF UPRIGHT IN BED. LEANING TO THE LEFT. PROVIDED A NECK PILLOW FOR HYPERFLEXION OF NECK. ASSISTED WITH REPOSITIONING AND ORAL CARE ATTEMPTED. PT ALLOWED FOR THE TOOTHETTE TO BE USED A TOOTHBRUSH AND ONE SWIPE ON THE INSIDE OF HER LEFT CHEEK. PT THEN STARTED SHAKING HER HEAD 'NO' AND CLOSED HER MOUTH. PAIN 7/10 PER FLACC SCALE. BEDSIDE TO ADMINISTER 5 MG ROXANOL SL AND REEVALUATE. PC TO REMAIN AVAILABLE NEEDED.
--- NOTE | 2024-06-24 18:33 | NUR ---
SHIFT SUMMARY PT SLEEPING PEACEFULLY IN ROOM WITH FAMILY PRESENT. REMAINS SOMULENT. DIFFICULT TO AROUSE. BREATHING IS APNIC AT TIMES. GAVE ROXANOL ONCE FOR PAIN/AIRHUNGER. PT ADMITTED DUE TO HYPERKALEMIA. SCOPOLAMINE PATCH IN PLACE BEHIND R EAR. COMFORT CARE ASSESSMENTS COMPLETE. PT TURNED Q2 HOURS. FAMILY AT BEDSIDE. PT IN BED, BED IN LOWEST POSITION, CALL LIGHT IN REACH. AWAITING SON ARRIVAL FROM [place]. COMFORT CART IN ROOM.
[2024-06-24] MEDS ORDERED: CefTRIAXone Sodium 1,000 MG in NS 100 ML IV SCH (21:00)
--- NOTE | 2024-06-25 03:42 | NUR ---
SHIFT SUMM: PT IS A CC PATIENT THAT HAS FAMILY AT BEDSIDE.PT HAS HAD PAINT CONTROL MGMT PER EMAR AND Q2 TURNS AND REPOSITIONING FOR COMFORT. PT HAS HAD ORAL CARE COMPLETED AND MOISTURIZER APPLIED TO LIPS AND MOUTH FOR COMFORT.ONCE PT PASSES SHE WILL BE GOING TO "[facility]" IN [place] ACCORDING TO SON AND PAPERWORK IS IN CHART. PT IS NPO AND HAS A SAUCEDO THAT IS DRAINING TO GRAVITY FOR COMFORT. PT IS MOSTLY UNAROUSABLE BUT DOES RESPOND TO JONY PAIN STIMULI AND TURNS.PT'S FAMILY CALLS TO MAKE NEEDS KNOWN FOR PT.
--- NOTE | 2024-06-25 17:45 | NUR ---
SHIFT SUMMARY PT SLEEPING PEACEFULLY IN ROOM WITH FAMILY PRESENT. DIFFICULT TO AROUSE. BREATHING APNIC AT TIMES. GAVE ROXANOL FOR PAIN/AIR HUNGER AND ATIVAN FOR AGITATION. PT HAS SCOPOLAMINE PATCH IN PLACE BEHIND R EAR. PT ADMITTED DUE TO HYPERKALEMIA. COMFORT CARE ASSESSMENTS COMPLETE. PT TURNED Q2 HOURS. FAMILY AT BEDSIDE. PT HAS SAUCEDO, SAUCEDO DRAINING WITH NO DEPENDENT LOOPS. PT IN BED, BED IN LOWEST POSITION. CALL LIGHT IN REACH. COMFORT CART REFILLED AND IN ROOM. ORAL CARE PERFORMED Q2 HOURS. CATH CARE COMPLETE. PT SUCTIONED PRN. MOISTERIZER APPLIED.
--- NOTE | 2024-06-26 06:04 | NUR ---
COMFORT CARE SHIFT SUMMARY PATIENT HAS NOT BEEN ALERT. PATIENT HAS HAD NO ACUTE EVENTS THIS SHIFT. PATIENT HAS BEEN RESTING COMFORTABLY. PATIENT HAS NOT REQUIRED ANYTHING FOR PAIN. PATIENT HAS BEEN SUCTIONED FOR SECRETIONS WITH MILD SUCCESS. FAMILY WITH PATIENT OFF AND ON THIS SHIFT. SAUCEDO PATENT AND DRAINING TO GRAVITY. BED IN LOCKED AND LOWEST POSITION.
--- NOTE | 2024-06-26 08:02 | NUR ---
pt laying in bed with eyes closed, unresponsive, nonverbal, resp even and unlabored, on r/a no s/s of distress noted, family member at bedside, no needs expressed, lungs are course/wet t/o, resp even and unlabored, no cough noted, hrr, no edema noted, ppp unable to be palpated, left le in cast, right has a wound with dressing in place and heel protector in place, bt very hypoactive, harrington cath draining yellow urine, briefs also in place, skin pale, no wounds, call light in reach of pt and sister.
--- NOTE | 2024-06-26 13:43 | NUR ---
on return from lunch was informed pt passed at 1320, family at bedside, Dr. Campbell was notified, as well as charge nurse. Gillian at room now.
--- NOTE | 2024-06-26 15:20 | NUR ---
SUPPORTIVE VISIT THIS MORNING. NO S/SX OF DISTRESS NOTED. RESPIRATIONS SHALLOW, EVEN. FACE IS LUEVANO AND ASHEN. TONGUE IS THICK AND LUEVANO. SISTER, CIRILO AT BEDSIDE. THERAPUTIC LISTENING PROVIDED. SENCE OF CALM IN THE ROOM AT CONCLUSION OF VISIT. LATER MORNING, [facility] PRES[facility] FOR H[facility]PICE EVALUATION.
--- NOTE | 2024-06-26 16:27 | NUR ---
Spiritual care visit conducted. At the request of family, I visited the patient, once all the members had arrrived had arrived and minutes after the patient passed. The room did not feel receptive to spiritual except for one person who welcomed prayer. I gladly supplied prayer and left the family to grieve. Some family members came out side the room and I provided them with home information which they took back in the room to discuss. I continue to remain available.
== END 2024-06-26 13:20 ==
LOC: ER 19:53 → PCU 19:54 → ERHOLD 19:54 → MEDS 19:54 → PCU 06-24 00:11 → MEDS 06-24 12:26
PROVIDERS: Emergency Medicine; ADMIT Internal Medicine
DX: E87.0 Hyperosmolality and hypernatremia (principal); E87.5 Hyperkalemia; E11.22 Type 2 diabetes mellitus with diabetic chronic kidney disease; I12.9 Hypertensive chronic kidney disease with stage 1 through stage 4 chronic kidney disease, or unspecified chronic kidney disease; N18.30 Chronic kidney disease, stage 3 unspecified; N17.9 Acute kidney failure, unspecified; E78.5 Hyperlipidemia, unspecified; L89.619 Pressure ulcer of right heel, unspecified stage; R62.7 Adult failure to thrive; I48.91 Unspecified atrial fibrillation; Z51.5 Encounter for palliative care; Z66 Do not resuscitate; Z79.84 Long term (current) use of oral hypoglycemic drugs; Z79.899 Other long term (current) drug therapy
CPT/HCPCS: 36415; 51702; 71045; 80048; 80053; 81001; 82947; 83735; 83880; 84100; 84439; 84443; 85025; 87086; 93005; 93010; 94644; 94664; 96365; 96374-59; 96375; 96375-59; 96376; 96376-59; 99285-25; A9270; G0378; J0612; J0696; J1815; J1938; J1940; J2060; J2270; J7070; J7799